=== PATIENT | male | born 1960 | race Caucasian/White ===

== ENCOUNTER 2018-06-29 16:00 | Emergency (ER) | payer BC ==
[2018-06-29] MEDS ORDERED: Lidocaine Viscous Sol 2% 15 ml UD Cup ONE (16:43)
[2018-06-29] MEDS ORDERED: Mag-Al Plus 1200 MG/1200 MG/120 MG/30 ML UDCUP ONE (16:43)
--- NOTE | 2018-06-29 17:42 | CT ---
Neck CT: 06/29/2018 COMPARISON: None HISTORY: Foreign body sensation in throat, recent shoulder surgery TECHNIQUE: Axial CT imaging obtained at 2 mm intervals from the skull base through the lung apices wi thout contrast. Coronal and sagittal reformatted imaging obtained. FINDINGS: There is soft tissue gas and associated fluid posterior to the sternocleidomastoid muscle o n the right from the axial level of the C5 vertebral body to the axial level of the supraclavicular region, presumably on the basis of recent surgery/interventional procedure, which could include recen t vascular access. Clinical correlation is required. There is also gas posterior to the distal right clavicle, incompletely imaged on this examination. The lack of IV contrast limits assessment of the mucosal structures, of the imaged vascular structure s, and for lymphadenopathy. The imaged lung apices appear grossly unremarkable aside from mild volume loss within the superior se gment of the right lower lobe posteriorly. Assessment of the upper chest is slightly limited on the basis of motion artifact. The imaged paranasal sinuses and mastoid air cells appear well-aerated. No acute osseous abnormality is evident. The retroantral fat and the parapharyngeal fat appears clear bilaterally. The parotid glands and the submandibular glands appear grossly unremarkable bilaterally. No discrete radiopaque foreign body is seen in the region of the trachea or esophagus. Limited assess ment of the tonsillar pillars, epiglottis and preepiglottic fat, hyoid bone, thyroid cartilage, cricoid cartilage, and thyroid gland appear unremarkable. There is disc space narrowing and posterior disc osteophyte complex at C5-6. IMPRESSION: No radioopaque foreign body seen. Ill-defined gas and fluid within the neck on the right posterior to the sternocleidomastoid muscle and lateral to the lower cervical paraspinal musculature, presumably on the basis of recent surgery. This could be related to recent vascular acce ss in this region as well. Clinical correlation is essential. If symptoms persist, follow-up imaging is suggested.
== END 2018-06-29 17:53 | disposition home or self-care (01) ==
LOC: SCSER 16:00
DX: R09.89 Other specified symptoms and signs involving the circulatory and respiratory systems (principal); F17.220 Nicotine dependence, chewing tobacco, uncomplicated
CPT/HCPCS: 70490; 96372; J1610